=== PATIENT | female | born 1995 | race American Indian/Alaskan Native ===

== ENCOUNTER 2017-04-04 16:56 | Emergency (ER) | payer OTHER ==
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
[2017-04-04] MEDS ORDERED: MOTRIN PO ONE (22:51)
[2017-04-04 23:59] VITALS: BP 109/76
== END 2017-04-04 23:06 | disposition home or self-care (01) ==
LOC: ED 16:56
DX: S20.219S Contusion of unspecified front wall of thorax, sequela (principal); S19.9XXA Unspecified injury of neck, initial encounter; M54.2 Cervicalgia; V89.2XXA Person injured in unspecified motor-vehicle accident, traffic, initial encounter; Y93.9 Activity, unspecified; Y99.9 Unspecified external cause status; Y92.410 Unspecified street and highway as the place of occurrence of the external cause
CPT/HCPCS: 70450; 71250; 74176; 99283

== ENCOUNTER 2018-01-24 10:15 | Outpatient (CLI) | payer OTHER, MEDICAID ==
[2018-01-24 14:11] VITALS: BP 114/72
[2018-01-24] MEDS ORDERED: VISTARIL PO PRN (14:24)
== END 2018-01-24 14:42 | disposition home or self-care (01) ==
LOC: TRG 10:15
PROVIDERS: ATTEND Obstetrics & Gynecology
DX: O47.1 False labor at or after 37 completed weeks of gestation (principal); Z3A.39 39 weeks gestation of pregnancy
CPT/HCPCS: Q0177

== ENCOUNTER 2018-01-24 18:32 | Inpatient (IN) | payer MEDICAID, OTHER ==
[2018-01-24] MEDS ORDERED: LACTATED RINGERS 1,000 ML ONE (18:58)
[2018-01-24] MEDS ORDERED: SUBLIMAZE ONE (19:43)
[2018-01-24] MEDS: LACTATED RINGERS 1,000 ML IV SCH ×2 (19:50→23:21)
[2018-01-24 19:54] LABS: Hematocrit 34.4 % (30.3-42.9); Hemoglobin 11.8 gm/dl (10.1-14.3); Mean Corpuscular HGB Conc 34 % (30-34); Mean Corpuscular Hemoglobin 32 pg (28-32); Mean Corpuscular Volume 92 fl (79-97); Platelet Count 145 K/mm3 (140-440); Red Blood Count 3.72 M/mm3 (3.65-5.03); Red Cell Distribution Width 13.9 % (13.2-15.2)
[2018-01-24] MEDS ORDERED: PITOCin/NS 20 UNIT/1000ML DRIP 20 UNITS/1,000 ML BAG IV SCH (20:00)
[2018-01-24] MEDS ORDERED: SUBLIMAZE IV ONE ×2 (20:00→22:05)
[2018-01-24] MEDS ORDERED: POLYCILLIN/NS 2 GM/100 ML 2 GM/100 ML BAG IV ONE (20:00)
[2018-01-24] MEDS: PITOCin/NS 30 UNIT/500ML 30 UNITS/500 ML BAG IV SCH ×2 (22:17→23:15)
[2018-01-24] MEDS ORDERED: NARCAN 2 MG/2 ML IV PRN (23:11)
--- NOTE | 2018-01-24 23:11 | Anesthesia Consultation ---
Anesthesia Consult and Med Hx Date of service: 01/24/18 - Airway Anesthetic Teeth Evaluation: Good ROM Head & Neck: Adequate Mental/Hyoid Distance: Adequate Mallampati Class: Class II Intubation Access Assessment: Good - Pulmonary Exam CTA: Yes - Cardiac Exam Cardiac Exam: No Murmur - Pre-Operative Health Status ASA Pre-Surgery Classification: ASA2 Proposed Anesthetic Plan: Epidural - Pulmonary Hx Asthma: No COPD: No Hx Pneumonia: No - Cardiovascular System Hx Hypertension: No - Central Nervous System Hx Seizures: No Hx Psychiatric Problems: No - Endocrine Hx Renal Disease: No Hx End Stage Renal Disease: No Hx Hypothyroidism: No Hx Hyperthyroidism: No - Hematic Hx Anemia: No Hx Sickle Cell Disease: No - Other Systems Hx Alcohol Use: No
[2018-01-24] MEDS ORDERED: fentaNYL-BUPIV 2 MCG/ML-0.125% 200 MCG/100 ML BAG EPIDURAL SCH (23:45)
[2018-01-25] MEDS ORDERED: AMPICILLIN/NS 1 GM/50 ML 1 GM/50 ML BAG IV SCH
--- NOTE | 2018-01-25 02:14 | History and Physical Report ---
History of Present Illness Date of examination: 01/25/18 Date of admission: 01/24/18 18:45 Chief complaint: contractions History of present illness: 22y/o @ 39+5 weeks presents in active labor with advanced cervical dilation. She denies leakage of fluid at presentation. The patient denies having GBS. Cervical exam at admission was 6-7cm. Past History Past Medical History: no pertinent history Past Surgical History: no surgical history Social history: single - Obstetrical History Expected Date of Delivery: 01/27/18 Actual Gestation: 39 Week(s) 6 Day(s) : 1 Para: 0 Hx # Term Pregnancies: 0 Number of Pregnancies: 0 Spontaneous Abortions: 0 Induced : 0 Number of Living Children: 0 Medications and Allergies Allergies Allergy/AdvReac Type Severity Reaction Status Date / Time No Known Allergies Allergy Unverified 04/04/17 21:01 Home Medications Medication Instructions Recorded Confirmed Last Taken Type RX: Ibuprofen [Motrin 600 MG tab] 600 mg PO TID PRN #15 tablet 04/04/1704/10/17 Rx HYDROcodone/APAP 5-325 [[place] 1 each PO Q6HR PRN #30 tablet 01/26/18 Unknown Rx 5/325] Ibuprofen [Motrin] 800 mg PO Q8HR PRN #60 tablet 01/26/18 Unknown Rx Active Meds: Active Medications Ephedrine Sulfate (Ephedrine Sulfate) 10 mg IV Q2M PRN PRN Reason: Hypotension Lactated Ringer's (Lactated Ringers) 1,000 mls @ 125 mls/hr IV DIRECT EDDIE Last Admin: 01/24/18 23:21 Dose: 125 mls/hr Oxytocin/Sodium Chloride (Pitocin/Ns 20 Unit/1000ml Drip) 20 units in 1,000 mls @ 125 mls/hr IV DIRECT EDDIE Oxytocin/Sodium Chloride (Pitocin/Ns 30 Unit/500ml) 30 units in 500 mls @ 4 mls /hr IV TITR EDDIE; Protocol Last Titration: 01/25/18 01:55 Dose: 14 ml/hr, 14 mls/hr Fentanyl/Bupivacaine/Sodium Chlor (Fentanyl-Bupiv 2 Mcg/Ml-0.125%) 200 mcg in 100 mls @ 12 mls/hr EPIDURAL TITR EDDIE; Protocol Last Admin: 01/25/18 00:06 Dose: 12 mls/hr Ampicillin Sodium (Ampicillin/Ns 1 Gm/50 Ml) 1 gm in 50 mls @ 100 mls/hr IV Q4H [facility]; Protocol Last Admin: 01/24/18 23:39 Dose: 100 mls/hr Naloxone HCl (Narcan 2 Mg/2 Ml) 0.2 mg IV Q5M PRN PRN Reason: Respiratory sedation Review of Systems All systems: negative Genitourinary: pelvic pain, contractions, no leakage of fluid - Vital Signs Vital signs: Vital Signs Temp 97.5 F L 01/24/18 19:25 Temp Pulse Resp BP Pulse Ox 97.5 F L 81 16 125/78 100 01/24/18 19:25 01/25/18 02:05 01/24/18 23:29 01/25/18 01:50 01/25/18 02:05 - Physical Exam Breasts: Positive: deferred Cardiovascular: Regular rate Lungs: Positive: Clear to auscultation Abdomen: Positive: normal appearance Results Result Diagrams: 01/25/18 15:48 All other labs normal. Assessment and Plan - Patient Problems (1) Active labor at term Current Visit: Yes Status: Acute Plan to address problem: admit to L&D
[2018-01-25] MEDS ORDERED: MINERAL OIL ONE (02:57)
--- NOTE | 2018-01-25 03:28 | Procedure Note ---
OB Delivery Note - Delivery Date of Delivery: 01/25/18 Surgeon: MAVERICK ROCKWELL Estimated blood loss: other (150ml) - Vaginal Delivery presentation: vertex Delivery position: OA Intrapartum events: none Delivery induction: AROM Delivery augmentation: pitocin Delivery monitor: external FHT Route of delivery: Delivery placenta: spontaneous Delivery cord: 3 umbilical vessels Episiotomy: none Delivery laceration: 2nd degree Delivery repair: vicryl Anesthesia: epidural Delivery comments: Patient progressed to C/C/+1 and pushed to deliver a liveborn male infant with apgars with 7/9. After delivery of the shoulders, the was bulb suctioned. The cord was clamped and cut and the was placed on the warmer. The placenta delivered spontaneously intact with a 3VC. The patient sustained a 2nd degree midline laceration repaired in normal fashion with 2-0 vicryl. weight was 7lbs 4oz. EBL 150ml - Infant A at 1 minute: 7 at 5 minutes: 9 Gender: Male (weight 7lbs 4oz)
[2018-01-25] MEDS ORDERED: PHENERGAN PR PRN (03:29)
[2018-01-25] MEDS ORDERED: PHENERGAN PO PRN (03:29)
[2018-01-25] MEDS ORDERED: BENADRYL PO PRN (03:29)
[2018-01-25] MEDS ORDERED: ZOFRAN IV PRN (03:29)
[2018-01-25] MEDS ORDERED: MILK OF MAGNESIA PO PRN (03:29)
[2018-01-25] MEDS ORDERED: PERCOCET 5/325 PO PRN (03:29)
[2018-01-25] MEDS ORDERED: TYLENOL PO PRN (03:29)
[2018-01-25] MEDS ORDERED: DULCOLAX PR PRN (03:29)
[2018-01-25] MEDS ORDERED: SODIUM CHLORIDE FLUSH SYRINGE 10 ML IV PRN (04:00)
[2018-01-25] MEDS: MOTRIN PO SCH ×4 (06:22→18:30)
[2018-01-25] MEDS: LANSINOH TP PRN (06:23)
[2018-01-25] MEDS: TUCKS PAD TP PRN ×2 (06:27→11:26)
[2018-01-25] MEDS: DERMOPLAST TP PRN ×2 (07:20→11:24)
[2018-01-25 16:09] LABS: Hematocrit 27.8 % (30.3-42.9); Hemoglobin 9.4 gm/dl (10.1-14.3)
[2018-01-26] MEDS: MOTRIN PO SCH ×3 (00:02→11:58)
[2018-01-26] MEDS: LANSINOH TP PRN (01:38)
[2018-01-26] MEDS ORDERED: BOOSTRIX IM ONE (06:00)
--- NOTE | 2018-01-26 12:52 | Progress Note ---
Assessment and Plan - Patient Problems (1) Active labor at term Current Visit: Yes Status: Acute Plan to address problem: Patient doing well Discharge home Subjective - Subjective Date of service: 01/26/18 Interval history: Patient is doing well today. She reports that her pain is well-controlled. She is tolerating regular diet without complication. Patient reports: appetite normal, voiding normally, pain well controlled : doing well Objective - Vital Signs Latest vital signs: Vital Signs Temp Pulse Resp BP BP Pulse Ox 01/26/18 07:36 98.8 F 77 19 111/62 100 01/26/18 05:01 18 01/26/18 00:02 20 01/25/18 23:05 98.5 F 84 18 114/62 97 01/25/18 16:07 98.9 F 94 H 20 116/67 98 Intake and Output 01/25/18 01/26/18 01/26/18 22:59 06:59 14:59 Intake Total 240 360 Output Total 300 Balance -60 360 Intake: Oral 240 Intake, Free Water 360 Output: Urine 300 Void 300 Other: Total, Intake Amount 240 Total, Output Amount 300 # Voids Void 1 1 - Exam Uterus: Present: normal, firm - Labs Labs: Abnormal lab results 01/25/18 Range/Units 15:48 Hgb 9.4 L (10.1-14.3) gm/dl Hct 27.8 L D (30.3-42.9) %
--- NOTE | 2018-01-26 12:53 | Discharge Summary ---
Providers - Providers Date of Admission: 01/24/18 18:45 Date of discharge: 01/26/18 Attending physician: MAVERICK ROCKWELL Primary care physician: MAVERICK ROCKWELL Hospitalization Reason for admission: active labor Delivery: Discharge diagnosis: IUP at term delivered Hospital course: The patient was admitted in active labor however she had a protracted first stage of labor. The patient eventually had a spontaneous vaginal delivery. course was uncomplicated. Condition at discharge: Good Disposition: DC-01 TO HOME OR SELFCARE - Discharge Diagnoses (1) Active labor at term Status: Acute Plan - Discharge Medications Prescriptions: HYDROcodone/APAP 5-325 [[place] 5/325] 1 each PO Q6HR PRN #30 tablet PRN Reason: Pain Ibuprofen [Motrin] 800 mg PO Q8HR PRN #60 tablet PRN Reason: Pain, Mild (1-3) - Provider Discharge Summary Activity: no sex for 6 weeks, no heavy lifting 4 weeks, no strenuous exercise Diet: routine Instructions: routine Additional instructions: [] Smoking cessation referral if applicable(refer to patient education folder for contact #) [] Refer to [facility] Booklet Call your doctor immediately for: * Fever > 100.5 * Heavy vaginal bleeding ( >1 pad per hour) * Severe persistent headache * Shortness of breath * Reddened, hot, painful area to leg or breast * Schedule visit in 4 weeks - Follow up plan
[2018-01-26 16:35] VITALS: BP 120/77
== END 2018-01-26 19:50 | disposition home or self-care (01) | DRG 775 ==
LOC: TRG 18:32 → LD 18:45 → OB 01-25 06:09
PROVIDERS: ADMIT Obstetrics & Gynecology; ATTEND Obstetrics & Gynecology
PROC: 10E0XZZ Delivery of Products of Conception, External Approach (ICD-10-PCS; principal; 2018-01-25)
PROC: 0KQM0ZZ Repair Perineum Muscle, Open Approach (ICD-10-PCS; 2018-01-25)
PROC: 10907ZC Drainage of Amniotic Fluid, Therapeutic from Products of Conception, Via Natural or Artificial Opening (ICD-10-PCS; 2018-01-25)
PROC: 3E0R3BZ Introduction of Anesthetic Agent into Spinal Canal, Percutaneous Approach (ICD-10-PCS; 2018-01-25)
PROC: 00HU33Z Insertion of Infusion Device into Spinal Canal, Percutaneous Approach (ICD-10-PCS; 2018-01-25)
DX: O62.0 Primary inadequate contractions (principal); O70.1 Second degree perineal laceration during delivery; Z37.0 Single live birth; Z3A.39 39 weeks gestation of pregnancy; Z79.899 Other long term (current) drug therapy
CPT/HCPCS: 36415; 85014; 85018; 85027; 86592; 86850; 86900; 86901; 90471; 90715; 99211; A6250; G0463; J0290; J2590; J3010; J7120